=== PATIENT | female | born 1975 | race African-American/Black ===

== ENCOUNTER 2016-07-02 13:14 | Emergency (ER) | payer SELFPAY ==
[~2016-07-02] VITALS: Ht 162.6 cm; Wt 104.5 kg
[~2016-07-02 13:14] MED LIST: MONT10TA2 PO; PEAKMIS IN; VENTAER INH
[2016-07-02 13:15] VITALS: BP 133/88; PULSE 108; RESP 20; TEMP 97.9; O2SAT 98
[2016-07-02] MEDS ORDERED: VENTAER INH ×2 (13:30→15:42)
[2016-07-02] MEDS ORDERED: PEAK FLOW METER1 MIS (13:30)
[2016-07-02 13:41] VITALS: RESP 18; O2SAT 96
[2016-07-02] MEDS ORDERED: SODIUM CHLORIDE 0.9% FLUSH 5 ML FLUSH IVF PRN (13:45)
[2016-07-02] MEDS ORDERED: methylPREDNISolone SOD SUCC 125 MG/2 ML VIAL IVP ONE (13:45)
[2016-07-02] MEDS: RESP: ALBUTEROL 2.5 MG/IPRATROPIUM 0.5 MG NEB (SCH) INH (13:48)
--- NOTE | 2016-07-02 13:54 | PD ---
HPI Chief Complaint: Dizziness Time Seen by Provider: 13:52 Travel History International Travel<30 days: No Contact w/Intl Traveler<30days: No Traveled to known affect area: No History of Present Illness HPI Patient comes in complaining of dizziness ongoing since the of last month and asthma flareup ongoing over the past couple weeks. Patient is been using her albuterol for symptomatic relief. Patient complaining of vertigo primarily at night when she lays down flat. Dizziness is worse with certain motion. Denies any chest pain, fevers, nausea, vomiting, diarrhea, or syncope. Patient states that her asthma symptoms began approximately 2 weeks ago after running out of her Singulair. PFSH Past Medical History Asthma: Yes Influenza Vaccination: No ?: Not LMP: 06/05/16 Social History Alcohol Use: No Tobacco Use: No Substance Use: No Allergies-Medications (Allergen,Severity, Reaction): Coded Allergies: No Known Allergies (Verified , 07/02/16) Reported Meds & Prescriptions Reported Meds & Active Scripts Active Meclizine (Meclizine HCl) 25 Mg Tab 25 Mg PO Q8HR PRN Prednisone (21) 10 mg tab Dose Pack (Prednisone) 10 Mg Pack 10 Mg PO DIRECTED [place]olin Hfa 18 GM Inh (Albuterol Sulfate) 90 Mcg/Act Aer 2 Puff INH Q4H PRN Reported Peak Flow Meter 1 Mis Mis 1 Ea .ROUTE DIRECTED Ventolin Hfa 18 GM Inh (Albuterol Sulfate) 90 Mcg/Act Aer 2 Puff INH Q4H PRN Review of Systems Except as stated in HPI: all other systems reviewed are Neg Physical Exam Narrative GENERAL: Well-developed, overly nourished, in no acute distress, and non-ill appearing. SKIN: Warm and dry. HEAD: Atraumatic. Normocephalic. EYES: Pupils equal and round. EOMI. No scleral icterus. No injection or drainage. ENT: No nasal bleeding or discharge. Mucous membranes pink and moist. Tympanic membranes pearly cordoba bilaterally. Posterior pharynx nonerythematous without exudate. Uvula is midline. Patient reports tenderness to facial sinuses to palpation. NECK: Trachea midline. No cervical lymphadenopathy. Supple. No nuclear rigidity. CARDIOVASCULAR: Regular rate and rhythm. No murmur appreciated. RESPIRATORY: No accessory muscle use. No respiratory distress. Scant wheezing throughout. Breath sounds equal bilaterally. MUSCULOSKELETAL: No obvious deformities. No clubbing. No cyanosis. No edema. Full range of motion. NEUROLOGICAL: Awake and alert. No obvious cranial nerve deficits. Motor grossly within normal limits. Normal speech. PSYCHIATRIC: Appropriate mood and affect; insight and judgment normal. Data Data Last Documented VS Vital Signs Date Time Temp Pulse Resp B/P Pulse Ox O2 Delivery O2 Flow Rate FiO2 07/02/16 16:17 92 20 132/94 98 Room Air 07/02/16 13:15 97.9 Orders Electrocardiogram (07/02/16 13:39) Basic Metabolic Panel (Bmp) (07/02/16 13:39) Complete Blood Count With Diff (07/02/16 13:39) Chest, Single Ap (07/02/16 13:39) Ecg Monitoring (07/02/16 13:39) Iv Access Insert/Monitor (07/02/16 13:39) Oximetry (07/02/16 13:39) Methylprednisolone So Succ Inj (Solumedr (07/02/16 13:45) Albuterol-Ipratropium Neb (Duoneb Neb) (07/02/16 13:45) Sodium Chloride 0.9% Flush (Ns Flush) (07/02/16 13:45) Meclizine (Antivert) (07/02/16 14:00) Labs Laboratory Tests Test 07/02/16 14:30 White Blood Count 9.2 TH/MM3 Red Blood Count 4.42 MIL/MM3 Hemoglobin 10.3 GM/DL Hematocrit 31.8 % Mean Corpuscular Volume 72.0 FL Mean Corpuscular Hemoglobin 23.4 PG Mean Corpuscular Hemoglobin 32.5 % Concent Red Cell Distribution Width 16.8 % Platelet Count 403 TH/MM3 Mean Platelet Volume 8.5 FL Neutrophils (%) (Auto) 63.8 % Lymphocytes (%) (Auto) 21.1 % Monocytes (%) (Auto) 10.4 % Eosinophils (%) (Auto) 3.6 % Basophils (%) (Auto) 1.1 % Neutrophils # (Auto) 5.9 TH/MM3 Lymphocytes # (Auto) 2.0 TH/MM3 Monocytes # (Auto) 1.0 TH/MM3 Eosinophils # (Auto) 0.3 TH/MM3 Basophils # (Auto) 0.1 TH/MM3 CBC Comment AUTO DIFF Differential Comment AUTO DIFF CONFIRMED Platelet Estimate NORMAL Platelet Morphology Comment NORMAL Ovalocytes 1+ Sodium Level 138 MEQ/L Potassium Level 3.6 MEQ/L Chloride Level 104 MEQ/L Carbon Dioxide Level 25.9 MEQ/L Anion Gap 8 MEQ/L Blood Urea Nitrogen 9 MG/DL Creatinine 0.71 MG/DL Estimat Glomerular Filtration 110 ML/MIN Rate Random Glucose 79 MG/DL Calcium Level 8.9 MG/DL MDM Medical Decision Making Medical Screen Exam Complete: Yes Emergency Medical Condition: Yes Interpretation(s) EKG reviewed by Dr. Khan. Show sinus tachycardia with ventricular rate of 107. No STEMI and no acute changes Differential Diagnosis Asthma, electrolyte abnormality, arrhythmia, vertigo, sinusitis, other Narrative Course The patient looks great and improved well with Nebulizer and steroid medication. The patient is moving air well and in no distress nor significant dyspnea, and oxygen saturation is within normal limits. There is no clinical evidence to suggest pneumonia at this time. Diagnosis, plan of care and management were discussed with the patient who agreed with plan and feels better and ready to go home. The patient was instructed to return if worsen, worsening difficulty breathing or wheezing, persistent fever, chest pain or as needed. Patient in no obvious distress upon re-evaluation. All pertinent laboratory/ Radiology result(s) discussed with patient. Patient was asked if they wanted to speak to my attending, which the patient did not wish to do at this time. Discussed patient with Dr. Khan who is in agreement with plan of care and disposition. Any questions/concerns in reference to patient diagnosis/ condition discussed and clarified prior to patient's discharge. Reinforced sheer importance of close follow up with patient's primary physician or primary care clinic. Instructed patient to return to ED immediately, if symptoms return/ worsen. Pt showed understanding of above instructions. Further instructions and recommendations were detailed in discharge paperwork. Pt ambulated without difficulty out of ED at discharge. Diagnosis Primary Impression: Asthma Qualified Code: J45.909 - Uncomplicated asthma, unspecified asthma severity Additional Impression: Dizzy spells Referrals: [facility] Primary Care Physician Patient Instructions: Asthma (ED), Dizziness (ED), General Instructions Additional Instructions: Follow-up with your primary care physician this week for reevaluation. Take all medication as prescribed. Drink plan of non-caffeinated and nonalcoholic fluids. Return to the emergency department if symptoms get worse. Med/Other Pt SpecificInfo: Prescription(s) given Scripts Montelukast (Singulair)10 Mg Tab10 Mg PO HS #30 TAB Ref 0 Prov:Wallace Khan MD 07/02/16 Meclizine 25 Mg Tab25 Mg PO Q8HR PRN (VERTIGO) #14 TAB Ref 0 Prov:Wallace Khan MD 07/02/16 Prednisone (21) 10 mg tab Dose Pack 10 Mg Pack10 Mg PO DIRECTED #1 DSPK Ref 0 Prov:Wallace Khan MD 07/02/16 Albuterol 18 GM Inh (Ventolin Hfa 18 GM Inh)90 Mcg/Act Aer2 Puff INH Q4H PRN ( SHORTNESS OF BREATH) #1 INHALER Ref 0 Prov:Wallace Khan MD 07/02/16 Disposition: 01 DISCHARGE HOME Condition: Stable Carrillo Adams Jul 02, 2016 13:54
[2016-07-02] MEDS ORDERED: MECLIZINE HCL 25 MG TAB PO ONE (14:00)
--- NOTE | 2016-07-02 14:02 | RADRPT ---
EXAM DATE/TIME: 07/02/2016 13:38 [place] COMPARISON: No previous studies available for comparison. INDICATIONS : Cough, congestion, dizzy MEDICAL HISTORY : None. SURGICAL HISTORY : None. ENCOUNTER: Initial ACUITY: 1 day PAIN SCORE: 0/10 LOCATION: Bilateral chest FINDINGS: A single view of the chest demonstrates the lungs to be symmetrically aerated without evidence of mas s, infiltrate or effusion. The cardiomediastinal contours are unremarkable. Osseous structures are intact. CONCLUSION: No acute disease. Venkata Antoine MD FACR on July 02, 2016 at 14:00 Board Certified Radiologist. This report was verified electronically.
[2016-07-02 14:51] LABS: AUTOMATED NEUTROPHIL # 5.9 TH/MM3 (1.8-7.7); BASOPHIL # 0.1 TH/MM3 (0-0.2); BASOPHIL % 1.1 % (0.0-2.0); EOSINOPHIL # 0.3 TH/MM3 (0-0.4); EOSINOPHIL % 3.6 % (0.0-4.0); HEMATOCRIT 31.8 % (35.0-46.0); LYMPH % 21.1 % (9.0-44.0); MEAN CORPUSCULAR HEMOGLOBIN 23.4 PG (27.0-34.0); MEAN CORPUSCULAR HGB CONC 32.5 % (32.0-36.0); MONO % 10.4 % (0.0-8.0); NEUT % 63.8 % (16.0-70.0); PLATELET COUNT 403 TH/MM3 (150-450); RED BLOOD COUNT 4.42 MIL/MM3 (4.00-5.30); RED CELL DISTRIBUTION WIDTH 16.8 % (11.6-17.2); WHITE BLOOD COUNT 9.2 TH/MM3 (4.0-11.0)
[2016-07-02 15:01] LABS: HEMO FLAGS AUTO DIFF
[2016-07-02 15:03] LABS: BICARBONATE 25.9 MEQ/L (21.0-32.0); POTASSIUM 3.6 MEQ/L (3.5-5.1)
[2016-07-02 15:31] LABS: OVALOCYTES 1+ (NORMAL); PLATELET ESTIMATE SMEAR NORMAL (NORMAL); PLATELET MORPHOLOGY NORMAL (NORMAL); SCAN/DIFF AUTO DIFF CONFIRMED
[2016-07-02] MEDS ORDERED: MECL-62 PO (15:42)
[2016-07-02] MEDS ORDERED: MONT10TA2 PO (15:42)
[2016-07-02] MEDS ORDERED: PRED10PA PO (15:42)
--- NOTE | 2016-07-02 16:02 | PD ---
Data Data Last Documented VS Vital Signs Date Time Temp Pulse Resp B/P Pulse Ox O2 Delivery O2 Flow Rate FiO2 07/02/16 13:41 18 96 Room Air 07/02/16 13:15 97.9 108 133/88 Orders Electrocardiogram (07/02/16 13:39) Basic Metabolic Panel (Bmp) (07/02/16 13:39) Complete Blood Count With Diff (07/02/16 13:39) Chest, Single Ap (07/02/16 13:39) Ecg Monitoring (07/02/16 13:39) Iv Access Insert/Monitor (07/02/16 13:39) Oximetry (07/02/16 13:39) Methylprednisolone So Succ Inj (Solumedr (07/02/16 13:45) Albuterol-Ipratropium Neb (Duoneb Neb) (07/02/16 13:45) Sodium Chloride 0.9% Flush (Ns Flush) (07/02/16 13:45) Meclizine (Antivert) (07/02/16 14:00) Labs Laboratory Tests Test 07/02/16 14:30 White Blood Count 9.2 TH/MM3 Red Blood Count 4.42 MIL/MM3 Hemoglobin 10.3 GM/DL Hematocrit 31.8 % Mean Corpuscular Volume 72.0 FL Mean Corpuscular Hemoglobin 23.4 PG Mean Corpuscular Hemoglobin 32.5 % Concent Red Cell Distribution Width 16.8 % Platelet Count 403 TH/MM3 Mean Platelet Volume 8.5 FL Neutrophils (%) (Auto) 63.8 % Lymphocytes (%) (Auto) 21.1 % Monocytes (%) (Auto) 10.4 % Eosinophils (%) (Auto) 3.6 % Basophils (%) (Auto) 1.1 % Neutrophils # (Auto) 5.9 TH/MM3 Lymphocytes # (Auto) 2.0 TH/MM3 Monocytes # (Auto) 1.0 TH/MM3 Eosinophils # (Auto) 0.3 TH/MM3 Basophils # (Auto) 0.1 TH/MM3 CBC Comment AUTO DIFF Differential Comment AUTO DIFF CONFIRMED Platelet Estimate NORMAL Platelet Morphology Comment NORMAL Ovalocytes 1+ Sodium Level 138 MEQ/L Potassium Level 3.6 MEQ/L Chloride Level 104 MEQ/L Carbon Dioxide Level 25.9 MEQ/L Anion Gap 8 MEQ/L Blood Urea Nitrogen 9 MG/DL Creatinine 0.71 MG/DL Estimat Glomerular Filtration 110 ML/MIN Rate Random Glucose 79 MG/DL Calcium Level 8.9 MG/DL MDM Supervised Visit with ABI: Yes Narrative Course The history, exam, and medical decision-making in the associated mid-level provider note were completed with my assistance. I reviewed and agree with the findings presented. I attest that I had a [id number] encounter with the patient on the same day, and personally performed and documented my assessment and findings in the medical record. *My assessment and Findings: 41 year-old woman, presents with dizziness, worsening asthma symptoms. Looks well. Improved with treatment. No evidence of severe cause of her dizziness. Recommend outpatient follow-up. Diagnosis Primary Impression: Asthma Qualified Code: J45.909 - Uncomplicated asthma, unspecified asthma severity Additional Impression: Dizzy spells Referrals: [facility] Primary Care Physician Patient Instructions: General Instructions, Asthma (ED), Dizziness (ED) Departure Forms: Tests/Procedures Additional Instruction: Follow-up with your primary care physician this week for reevaluation. Take all medication as prescribed. Drink plan of non-caffeinated and nonalcoholic fluids. Return to the emergency department if symptoms get worse. Scripts Montelukast (Singulair)10 Mg Tab10 Mg PO HS #30 TAB Ref 0 Prov:Wallace Khan MD 07/02/16 Meclizine 25 Mg Tab25 Mg PO Q8HR PRN (VERTIGO) #14 TAB Ref 0 Prov:Wallace Khan MD 07/02/16 Prednisone (21) 10 mg tab Dose Pack 10 Mg Pack10 Mg PO DIRECTED #1 DSPK Ref 0 Prov:Wallace Khan MD 07/02/16 Albuterol 18 GM Inh (Ventolin Hfa 18 GM Inh)90 Mcg/Act Aer2 Puff INH Q4H PRN ( SHORTNESS OF BREATH) #1 INHALER Ref 0 Prov:Wallace Khan MD 07/02/16 Disposition: 01 DISCHARGE HOME Condition: Stable Wallace Khan MD Jul 02, 2016 16:02
[2016-07-02 16:17] VITALS: BP 132/94; PULSE 92; RESP 20; O2SAT 98
--- NOTE | 2016-07-03 10:33 | EKG ---
Date Performed: 07/02/2016 Time Performed: 13:49:34 PTAGE: 41 years EKG: SINUS TACHYCARDIA VOLTAGE CRITERIA FOR LVH NONSPECIFIC T-WAVE ABNORMALITY ABNORMAL ECG NO PREVIOUS TRACING DOCTOR: Gabriel Wheeler Interpretating Date/Time 07/03/2016 10:32:15
== END 2016-07-02 16:49 | disposition home or self-care (01) ==
LOC: NEPC 13:14
DX: J45.909 Unspecified asthma, uncomplicated (principal); R42 Dizziness and giddiness; R94.31 Abnormal electrocardiogram [ECG] [EKG]
CPT/HCPCS: 71010; 80048; 85025; 93005; 94664; 96374; 99284; J2930